=== PATIENT | female | born 1985 | race Caucasian/White ===

== ENCOUNTER 2016-11-03 09:42 | Emergency (ER) | payer BC ==
[~2016-11-03] VITALS: Ht 165.1 cm; Wt 86.4 kg
[2016-11-03] MEDS ORDERED: CLARITIN 1010 MG/TAB PO (10:13)
[2016-11-03] MEDS ORDERED: YAZ 28 3 MG-0.01 TAB PO (10:13)
[2016-11-03] MEDS ORDERED: ZOFRAN ODT4 MG PO (11:37)
[2016-11-03] MEDS ORDERED: NORCO 325 MG-51 TAB PO (11:37)
[2016-11-03 12:00] VITALS: BP 128/97; PULSE 76
== END 2016-11-03 12:02 | disposition home or self-care (01) ==
LOC: COL.ER 09:42
DX: S43.102A Unspecified dislocation of left acromioclavicular joint, initial encounter (principal); S00.83XA Contusion of other part of head, initial encounter; S40.212A Abrasion of left shoulder, initial encounter; V80.010A Animal-rider injured by fall from or being thrown from horse in noncollision accident, initial encounter
CPT/HCPCS: J2270; J2405; J3010